=== PATIENT | female | born 1975 | race American Indian/Alaskan Native ===

== ENCOUNTER 2016-12-09 19:28 | Emergency (ER) | payer BC ==
[2016-12-10] MEDS ORDERED: BANOPHEN ANTI-ITCH TP ONE (00:47)
[2016-12-10] MEDS ORDERED: CLEOCIN PO ONE (00:49)
--- NOTE | 2016-12-10 00:51 | Emergency Department Report ---
HPI - General Chief Complaint: Skin Rash Time Seen by Provider: 12/10/16 00:46 - HPI HPI: Patient is a 41-year-old female who presents to ED complaining of skin irritation 5 days. Patient states about 5 days ago she was curling her hair with a hot curling iron and sustained a burn to her right arm. Patient states she laid on the day applied some topical Neosporin on top of the wound. Patient later began itching and took a look at it Neosporin and realized. Had an expiration date of last year. Patient states she noticed redness around burn a couple of days ago and began H. Patient states that as she scratched the redness spread Along her arm to her forearm. Patient states she took a Benadryl yesterday and had minor relief. Patient denies fever/chills/nausea/vomiting/abdominal pain/stiffness chest pain or any other problems. ED Past Medical Hx - Past Medical History Previous Medical History?: Yes Additional medical history: hyperthyroidism - Surgical History Past Surgical History?: Yes Additional Surgical History: breast reduction - Social History Smoking Status: Never Smoker Substance Use Type: None - Medications Home Medications: Home Medications Medication Instructions Recorded Confirmed Last Taken Type Methimazole 10 mg PO DAILY 12/09/16 12/09/16 12/08/16 History Clindamycin [Clindamycin CAP] 600 mg PO BID #14 capsule 12/10/16 Unknown Rx Diphenhydramine HCl [Benadryl 25 mg PO DAILY #30 tablet 12/10/16 Unknown Rx Allergy TAB] Ibuprofen [Motrin] 600 mg PO TID PRN #30 tablet 12/10/16 Unknown Rx predniSONE [Deltasone] 20 mg PO DAILY #4 tablet 12/10/16 Unknown Rx ED Review of Systems ROS: Stated complaint: RASH ON RT ARM Other details as noted in HPI Constitutional: denies: chills, fever Eyes: denies: eye pain, eye discharge, vision change ENT: denies: ear pain, throat pain Respiratory: denies: cough, shortness of breath, wheezing Cardiovascular: denies: chest pain, palpitations Endocrine: no symptoms reported Gastrointestinal: denies: abdominal pain, nausea, vomiting, diarrhea Genitourinary: denies: urgency, dysuria, frequency, hematuria, discharge Musculoskeletal: denies: back pain, joint swelling, arthralgia Skin: denies: rash, lesions Neurological: denies: headache, weakness, numbness, paresthesias, confusion Psychiatric: denies: anxiety, depression Hematological/Lymphatic: denies: easy bleeding, easy bruising Physical Exam - Physical Exam Vital Signs: Vital Signs 12/09/16 22:00 Temperature 98.8 F Pulse Rate 90 Respiratory 18 Rate Blood Pressure 140/90 [Left] O2 Sat by Pulse 100 Oximetry Physical Exam: GENERAL: Alert and oriented x3, no apparent distress, Normal Gait, atraumatic. HEAD: Head is normocephalic and a-traumatic. EYES: Extra ocular muscles are intact. Pupils are equal, round, and reactive to light and accommodation. EARS: symetrical, atraumatic, gross auditory nml bilaterally. NOSE: Nose symetrical, Nontender,Nares appeared normal. MOUTH:Mouth is well hydrated and without lesions. Tonsils nonerythematous or swollen, Uvula midline, Tongue not elevated. Mucous membranes are moist. Posterior pharynx clear, no exudate or lesions. Patent airways. NECK: Supple. Non edematous, No carotid bruits. No lymphadenopathy or thyromegaly. LUNGS: Symetrical with respiration, No wheezing, no rales or crackles, CTAB. HEART: S1, S2 present, regular rate and rhythm without murmur, no rubs, no gallops. ABDOMEN: No organomegaly was noted,Positive bowel sounds, soft, and non- distended. . Nontender to palpation on all Quadrants, NO CVA tenderness. EXTREMITIES/MUSCULOSKELETAL: No cyanosis, clubbing, rash, lesions or edema. Full ROM bilaterally. UE Pulses 2+ bilaterally. NEUROLOGIC: No focal Deficit, Cranial nerves II through XII are grossly intact. No loss of sensation, PSYCHIATRIC: Mood is congruent with affect, denies suicidal or homicidal ideations. SKIN: Warm and dry, right 2-3 cm Healing burn cat ,right anterior arm erythematous, maculopapular raised lesion from mid arm to mid forearm anteriorly. Non-trainee ED Course Vital Signs 12/09/16 22:00 Temperature 98.8 F Pulse Rate 90 Respiratory 18 Rate Blood Pressure 140/90 [Left] O2 Sat by Pulse 100 Oximetry ED Medical Decision Making - Medical Decision Making 41-year-old female presents with an allergic dermatitis with cellulitis. ED course: Patient received some topical Benadryl to help with aching. 60 mg of prednisone. And 600 mg of clindamycin Patient to be discharged with Benadryl by mouth, prednisone pack and a clindamycin. Discussed with patient to take medication as prescribed. Discussed the patient follow up with primary care physician in 3-5 days. Discussed the patient to return to ED if symptoms worsen. Critical care attestation.: If time is entered above; I have spent that time in minutes in the direct care of this critically ill patient, excluding procedure time. ED Disposition Clinical Impression: Cellulitis of right arm, Burn of arm, right, first degree Disposition: DISCHARGED TO HOME OR SELFCARE Is pt being admited?: No Does the pt Need Aspirin: No Condition: Stable Instructions: Superficial Burn (ED), Abrasion (ED), Cellulitis (ED) Prescriptions: Clindamycin [Clindamycin CAP] 600 mg PO BID #14 capsule Diphenhydramine HCl [Benadryl Allergy TAB] 25 mg PO DAILY #30 tablet Ibuprofen [Motrin] 600 mg PO TID PRN #30 tablet PRN Reason: Pain predniSONE [Deltasone] 20 mg PO DAILY #4 tablet Referrals: PRIMARY CARE, [Primary Care Provider] - 3-5 Days [facility] [Outside] - 3-5 Days [facility] [Outside] - 3-5 Days [facility] [Outside] - 3-5 Days [facility] [Outside] - 3-5 Days Forms: Work/School Release Form(ED) Time of Disposition: 01:10
[2016-12-10] MEDS ORDERED: DELTASONE PO ONE (01:01)
[2016-12-10 01:23] VITALS: BP 132/88
== END 2016-12-10 01:54 | disposition home or self-care (01) ==
LOC: ED 19:28
DX: T22.10XA Burn of first degree of shoulder and upper limb, except wrist and hand, unspecified site, initial encounter (principal); L03.113 Cellulitis of right upper limb; E05.90 Thyrotoxicosis, unspecified without thyrotoxic crisis or storm; W86.8XXA Exposure to other electric current, initial encounter; Y93.89 Activity, other specified; Y99.9 Unspecified external cause status; Y92.89 Other specified places as the place of occurrence of the external cause
CPT/HCPCS: 99282; J7512

== ENCOUNTER 2017-01-14 16:30 | Emergency (ER) | payer BC, OTHER ==
[2017-01-14 16:49] VITALS: BP 149/99
--- NOTE | 2017-01-14 17:37 | Emergency Department Report ---
ED Rash HPI - HPI Chief Complaint: Skin Rash Stated Complaint: RED SKIN RASH Time Seen by Provider: 01/14/17 17:37 Duration: 1 Day Rash Symptoms: Yes Itching, No Facial Swelling, No Tongue/Oral Swelling, No Breathing Difficulties, No Choking Sensation, No Wheezing/Dyspnea, No Peeling, No Blistering, No Fever, No Lightheaded, No Malaise, No Myalgias Severity: mild Other History: Patient complaining of itchy rash to right arm only. States she has had this happen several times in the past does not know the allergen. Patient denies swelling of lips tongue or throat. Patient also denies shortness of breath cough or wheezing. ED Review of Systems ROS: Stated complaint: RED SKIN RASH Other details as noted in HPI Constitutional: denies: chills, fever, malaise ENT: denies: throat pain Respiratory: denies: cough, shortness of breath Cardiovascular: denies: chest pain, palpitations Gastrointestinal: denies: nausea, vomiting Musculoskeletal: denies: joint swelling, arthralgia Skin: rash, pruritus Neurological: denies: headache ED Past Medical Hx - Past Medical History Previous Medical History?: Yes Additional medical history: hyperthyroidism, Rash and contact dermatitis - Surgical History Past Surgical History?: Yes Hx Breast Surgery: Yes (Reduction 2014) Additional Surgical History: breast reduction - Social History Smoking Status: Former Smoker Substance Use Type: Alcohol - Medications Home Medications: Home Medications Medication Instructions Recorded Confirmed Last Taken Type Methimazole 10 mg PO DAILY 12/09/16 12/09/16 12/08/16 History Clindamycin [Clindamycin CAP] 600 mg PO BID #14 capsule 12/10/16 Unknown Rx Diphenhydramine HCl [Benadryl 25 mg PO DAILY #30 tablet 12/10/16 Unknown Rx Allergy TAB] Ibuprofen [Motrin] 600 mg PO TID PRN #30 tablet 12/10/16 Unknown Rx predniSONE [Deltasone] 20 mg PO DAILY #4 tablet 12/10/16 Unknown Rx Prednisone [predniSONE 10 mg 10 mg PO .TAPER #1 tab.ds.pk 01/14/17 Unknown Rx (6-Day Pack, 21 Tabs)] hydrOXYzine PAMOATE [Vistaril] 25 mg PO Q6HR PRN #25 capsule 01/14/17 Unknown Rx Rash Exam - Exam General: Vital signs noted. No distress. Alert and acting appropriately. HEENT: No Periorbital Edema, No Conjuctival Injection, No Chemosis, No Perioral Edema, No Tongue Edema, No Uvular Edema, No Compromised Airway, No Drooling Lungs: Yes Good Air Exchange, No Wheezes, No Ronchi, No Stridor, No Cough, No Labored Respirations, No Retractions, No Use of Accessory Muscles Skin: No Urticarial Rash, No Maculopapular Rash (right forearm approximately 3 cm diameter. Blanching. Nontender, no lymphangitis or lymphadenopathy noted.) , No Morbilliform rash, No Bulla(e), No Excoriations, No Weeping, No Tenderness , No Erythema, No Edema, No Encrustations, No Other ED Course Vital Signs 01/14/17 16:45 Temperature 98.8 F Pulse Rate 95 H Respiratory 18 Rate Blood Pressure 149/99 O2 Sat by Pulse 100 Oximetry Critical care attestation.: If time is entered above; I have spent that time in minutes in the direct care of this critically ill patient, excluding procedure time. ED Disposition Clinical Impression: Contact dermatitis Disposition: DISCHARGED TO HOME OR SELFCARE Is pt being admited?: No Condition: Stable Instructions: Contact Dermatitis (ED) Prescriptions: hydrOXYzine PAMOATE [Vistaril] 25 mg PO Q6HR PRN #25 capsule PRN Reason: Rash Prednisone [predniSONE 10 mg (6-Day Pack, 21 Tabs)] 10 mg PO .TAPER #1 tab.ds.pk Forms: Work/School Release Form(ED)
== END 2017-01-14 18:14 | disposition home or self-care (01) ==
LOC: ED 16:30
DX: L25.9 Unspecified contact dermatitis, unspecified cause (principal); E05.90 Thyrotoxicosis, unspecified without thyrotoxic crisis or storm; Z87.891 Personal history of nicotine dependence
CPT/HCPCS: 99282